=== PATIENT | female | born 1965 ===

== ENCOUNTER 2017-12-08 09:34 | Observation (INO) ==
[2017-12-08] MEDS ORDERED: BUPIVACAINE MPF 0.25% /EPI 30 ML VIAL ONE (11:50)
[2017-12-08] MEDS ORDERED: TISSUE ADHESIVE 1 EACH APPLICATOR TOP ONE (11:50)
[2017-12-08] MEDS ORDERED: LIDOCAINE 1%/EPI INJ 20 ML VIAL ONE (11:50)
[2017-12-08] MEDS ORDERED: FAMOTIDINE 20 MG/2 ML VIAL IV ONE (12:34)
[2017-12-08 12:41] LABS: Bilirubin,Direct 0.21 MG/DL (0.0-0.20); Bilirubin,Indirect 0.8 MG/DL (0.0-1.0); Total Protein 7.5 G/DL (6.4-8.3)
[2017-12-08] MEDS ORDERED: SEVOFLURANE 1 UNIT/15 MINUTE INH ONE (14:15)
[2017-12-08] MEDS ORDERED: PROPOFOL 200 MG/20 ML VIAL IV ONE (14:15)
[2017-12-08] MEDS ORDERED: LIDOCAINE 1% 5 ML VIAL ONE (14:15)
[2017-12-08] MEDS ORDERED: NEOSTIGMINE 10 MG/10 ML VIAL ONE (14:16)
[2017-12-08] MEDS ORDERED: ROCURONIUM 100 MG/10 ML VIAL IV ONE (14:16)
[2017-12-08] MEDS ORDERED: ACETAMINOPHEN 1,000 MG/100 ML VIAL IV ONE (14:16)
[2017-12-08] MEDS ORDERED: GLYCOPYRROLATE 0.4 MG/2 ML VIAL ONE (14:16)
[2017-12-08] MEDS ORDERED: ONDANSETRON 4 MG/2 ML VIAL ONE (14:16)
[2017-12-08] MEDS ORDERED: MIDAZOLAM 2 MG/2 ML VIAL ONE (14:16)
[2017-12-08] MEDS ORDERED: SUCCINYLCHOLINE 200 MG/10 ML VIAL ONE (14:16)
[2017-12-08] MEDS ORDERED: fentaNYL 100 MCG/2 ML VIAL ONE ×2 (14:16→14:17)
[2017-12-08] MEDS ORDERED: MORPHINE 4 MG/1 ML VIAL IV PRN (14:53)
[2017-12-08] MEDS ORDERED: ACETAMINOPHEN 325 MG TABLET PO PRN (14:53)
[2017-12-08] MEDS ORDERED: GLUCAGON 1 MG VIAL IM PRN (14:53)
[2017-12-08] MEDS ORDERED: ONDANSETRON 4 MG/2 ML VIAL IV PRN (14:53)
[2017-12-08] MEDS ORDERED: DEXTROSE 50% 25 GM/50 ML VIAL IV PRN (14:53)
[2017-12-08] MEDS: LACTATED RINGERS 1,000 ML IV SCH ×2 (15:18→22:58)
[2017-12-08] MEDS: INSULIN LISPRO 100 UNIT/ML SUBCUT SCH ×3 (15:28→22:16)
[2017-12-08] MEDS: cefOXitin 2,000 MG in SYRINGE 1 EACH IV SCH ×2 (16:21→21:55)
[2017-12-08] MEDS ORDERED: LISINOPRIL 5 MG TABLET PO SCH (19:00)
[2017-12-08] MEDS ORDERED: ASPIRIN EC 81 MG TABLET PO SCH (19:00)
[2017-12-08] MEDS ORDERED: hydroCHLOROthiazide 12.5 MG CAPSULE PO SCH (19:00)
[2017-12-08] MEDS ORDERED: DULoxetine 30 MG CAPSULE PO SCH (19:00)
[2017-12-09] MEDS: cefOXitin 2,000 MG in SYRINGE 1 EACH IV SCH ×2 (03:33→08:24)
[2017-12-09] MEDS: LACTATED RINGERS 1,000 ML IV SCH (06:53)
[2017-12-09 07:53] LABS: Basophils % 0.2 % (0.0-0.8); Eosinophils # 0.1 10*3/uL (0.0-0.87); Eosinophils % 1.8 % (0.00-10.9); Hematocrit 38.3 VOL% (35.7-47.0); Hemoglobin 12.2 GM/DL (12.0-16.0); Immature Granulocytes % 0.5 %; Immature Granulocytes Absolute 0.03 #; Lymphocytes # 1.3 10*3/uL (1.4-4.0); Lymphocytes % 19.6 % (21.3-54.2); Mean Corpuscular HGB Conc 31.9 GM/DL (32-36); Mean Corpuscular Hemoglobin 30 PG (27-34); Mean Corpuscular Volume 93.9 FL (87-102); Mean Platelet Volume 11.2 FL (9.6-12.0); Monocytes # 0.5 10*3/uL (0.11-0.8); Monocytes % 7.5 % (1.7-12.7); Neutrophils # 4.6 10*3/uL (1.4-7.4); Neutrophils % 70.4 % (38.7-73.9); Platelet Count 134 T/CUMM (130-400); Red Blood Count 4.08 MC/CUMM (3.8-5.5); Red Cell Distribution Width 12.9 % (9.3-17.3); White Blood Count 6.6 T/CUMM (4-12)
[2017-12-09 08:20] LABS: Calcium 8.7 MG/DL (8.5-10.1); Osmolality,Calculated 283.1 MOS/KG (273-304); Potassium 3.8 MMOL/L (3.5-5.1)
[2017-12-09] MEDS: INSULIN LISPRO 100 UNIT/ML SUBCUT SCH ×2 (08:27→13:30)
[2017-12-09] MEDS ORDERED: PANTOPRAZOLE 40 MG TABLET PO SCH (09:00)
[2017-12-09 11:39] VITALS: BP 100/56
== END 2017-12-09 16:13 | disposition home or self-care (01) ==
LOC: EDBD → EDUNIT# → N.ED 09:34 → N.EDINP 09:34 → N.2E 12:40
PROVIDERS: ADMIT Surgery; ATTEND Surgery